=== PATIENT | female | born 1990 | race African-American/Black ===

== ENCOUNTER 2018-02-28 08:21 | Emergency (ER) | payer OTHER ==
[~2018-02-28] VITALS: Ht 170.2 cm; Wt 142.9 kg
[~2018-02-28 08:21] MED LIST: AMOXICILLIN875 MG PO; AUGMENTIN 875-1 EACH PO; BENTYL10 MG PO; CIPRO500 MG PO; DILAUDID2 MG PO; FERROUS SULFAT325 MG PO; FLONASE2 SPRAY NS; OMEPRAZOLE20 MG PO; PAROXETINE HCL20 MG PO; PEPCID20 MG PO; PREDNISONE1 MG PO; PRILOSEC OTC20 MG PO; VITAMIN C250 MG PO; ZANTAC150 MG PO; ZOFRAN ODT4 MG SL
[2018-02-28] MEDS ORDERED: ONDANSETRON ODT8 MG PO (10:03)
[2018-02-28] MEDS ORDERED: NORCO 5-325 TA1 EACH PO (10:03)
== END 2018-02-28 10:39 | disposition home or self-care (01) ==
LOC: ED 08:21
DX: R10.9 Unspecified abdominal pain (principal); R11.0 Nausea; F17.200 Nicotine dependence, unspecified, uncomplicated; Z79.899 Other long term (current) drug therapy
CPT/HCPCS: 76705; 80053; 81001; 82150; 83690; 84703; 85025; 96374; 96375; 99284; J1885; J2405

== ENCOUNTER 2018-09-19 11:12 | Emergency (ER) | payer OTHER ==
[~2018-09-19] VITALS: Ht 170.2 cm; Wt 1512.3 kg
[~2018-09-19 11:12] MED LIST changes: +NORCO 5-325 TA1 EACH PO; +ONDANSETRON ODT8 MG PO
[2018-09-19] MEDS ORDERED: ONDANSETRON ODT8 MG PO (12:48)
== END 2018-09-19 13:04 | disposition home or self-care (01) ==
LOC: ED 11:12
DX: K92.2 Gastrointestinal hemorrhage, unspecified (principal); K52.9 Noninfective gastroenteritis and colitis, unspecified; F41.9 Anxiety disorder, unspecified; F17.210 Nicotine dependence, cigarettes, uncomplicated; Z79.899 Other long term (current) drug therapy
CPT/HCPCS: 80053; 85025; 85610; 85730; 86850; 86900; 86901; 99283

== ENCOUNTER 2019-02-01 21:27 | Emergency (ER) | payer OTHER ==
[~2019-02-01] VITALS: Ht 170.2 cm; Wt 151.1 kg
[2019-02-02] MEDS ORDERED: ZOFRAN4 MG PO (00:07)
[2019-02-02] MEDS ORDERED: PROTONIX40 MG PO (00:07)
== END 2019-02-02 00:35 | disposition home or self-care (01) ==
LOC: ED 21:27
DX: K52.9 Noninfective gastroenteritis and colitis, unspecified (principal); K29.20 Alcoholic gastritis without bleeding; F17.200 Nicotine dependence, unspecified, uncomplicated
CPT/HCPCS: 80053; 81001; 83690; 84703; 85025; 96361; 96374; 96375; 96376; 99284-25; C9113; J2405; J7030

== ENCOUNTER 2021-10-21 17:21 | Emergency (ER) | payer OTHER ==
[~2021-10-21] VITALS: Ht 170.2 cm; Wt 151.1 kg
[~2021-10-21 17:21] MED LIST changes: +PROTONIX40 MG PO; +ZOFRAN4 MG PO
--- OUTSIDE RECORDS SUMMARY | 2021-10-21 17:28 | XMS ---
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 [place] has no Care Guidelines for this patient. William VISIT COUNT (12 MO.) 1 [facility] TOTAL 1 NOTE: Visits indicate total known visits. ED/[place] VISIT TRACKING (12 MO.) 10/21/2021 17:22 [facility] [place] TYPE: Emergency COMPLAINT: - HEAD INJURY INPATIENT VISIT TRACKING (12 MO.) No inpatient visits to display in this time frame [email or web address]
[2021-10-21] MEDS ORDERED: CYCLOBENZAPRINE10 MG PO (21:08)
== END 2021-10-21 21:20 | disposition home or self-care (01) ==
LOC: ED 17:21
DX: S00.03XA Contusion of scalp, initial encounter (principal); G43.909 Migraine, unspecified, not intractable, without status migrainosus; F17.200 Nicotine dependence, unspecified, uncomplicated; Z79.899 Other long term (current) drug therapy; W22.8XXA Striking against or struck by other objects, initial encounter
CPT/HCPCS: 70450; 99284-25

== ENCOUNTER 2021-12-11 22:38 | Emergency (ER) | payer OTHER ==
[~2021-12-11] VITALS: Ht 177.8 cm; Wt 180.0 kg
--- NOTE | ~2021-12-11 | EKG ---
[facility] [address] [facility] [place], [place] [address] Draft EK completed, results pending confirmation PATIENT NAME: ELIZA TUCKER Electrocardiogram DATE OF : 88 PHYSICIAN: PRELIMINARY REPORT #: [id number] REPORT IS CONFIDENTIAL AND NOT TO BE RELEASED WITHOUT AUTHORIZATION
[~2021-12-11 22:38] MED LIST changes: +CYCLOBENZAPRINE10 MG PO
--- OUTSIDE RECORDS SUMMARY | 2021-12-11 22:46 | XMS ---
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 [place] has no Care Guidelines for this patient. William VISIT COUNT (12 MO.) 2 [facility] TOTAL 2 NOTE: Visits indicate total known visits. ED/C VISIT TRACKING (12 MO.) 12/11/2021 22:38 [facility] [place] TYPE: Emergency COMPLAINT: - UNRESPONSIVE 10/21/2021 17:[address] [facility] [place] TYPE: Emergency COMPLAINT: - HEAD INJURY DIAGNOSES: - Contusion of other part of head, initial encounter - Migraine, unspecified, not intractable, without status migrainosus - Other assisted (current) drug therapy - Contusion of scalp, initial encounter - Unspecified injury of head, initial encounter - Nicotine dependence, unspecified, uncomplicated - Syncope and collapse - Striking against or struck by other objects, initial encounter INPATIENT VISIT TRACKING (12 MO.) No inpatient visits to display in this time frame [email or web address]
== END 2021-12-12 03:43 | disposition short-term general hospital (02) ==
LOC: ED 22:38
DX: I46.9 Cardiac arrest, cause unspecified (principal); N17.9 Acute kidney failure, unspecified; J96.00 Acute respiratory failure, unspecified whether with hypoxia or hypercapnia; E72.4 Disorders of ornithine metabolism; D72.829 Elevated white blood cell count, unspecified; F19.10 Other psychoactive substance abuse, uncomplicated; E87.2 Acidosis; F17.200 Nicotine dependence, unspecified, uncomplicated; Z20.822 Contact with and (suspected) exposure to COVID-19
CPT/HCPCS: 31500; 36415; 36556; 36600; 51702; 70450; 71045; 71250; 80053; 81001; 82140; 82803; 83605; 83735; 84484; 84703; 85025; 85610; 93005; 93010; 94003; 99285-25; G0480; J1940; J2250; J2543; J2704; J7030; U0003